=== PATIENT | female | born 1980 | race Caucasian/White ===

== ENCOUNTER → 2020-10-07 13:26 | Outpatient (CLI) | payer OTHER, SELFPAY ==
--- NOTE | ~2020-10-07 | US_ITS ---
EXAMINATION: US pelvic complete DATE: 10/07/2020 13:46 INDICATION: Amenorrhea Comparison:No prior studies for comparison. TECHNIQUE: Multiple transabdominal and endovaginal sonographic images of the pelvis performed. FINDINGS: The uterus measures 7.1 x 3.2 x 5.6 cm. There are echogenic foci in the lower uterine segme nt, likely calcifications. The endometrial complex measures 4 mm. The right ovary measures 2.9 x 2.9 x 1.9 cm and the left ovary measures 4 x 2 x 2.5 cm. There are sm all follicles in each ovary. Normal doppler signal in both ovaries. There is no free fluid in the pelvis. There are no abnormal masses seen on either side. IMPRESSION: 1. Echogenic foci in the lower uterine segment, likely calcifications. Otherwise, unremarkable pelvic ultrasound. Reviewed, dictated and finalized at location B. IMPRESSION: 1. Echogenic foci in the lower uterine segment, likely calcifications. Otherwis e, unremarkable pelvic ultrasound.
== END ==
PROVIDERS: Visit Provider Nurse Practitioner
DX: N91.2 Amenorrhea, unspecified (principal)
CPT/HCPCS: 76856

== ENCOUNTER → 2020-12-24 09:16 | Outpatient (CLI) | payer OTHER, SELFPAY ==
--- NOTE | ~2020-12-24 | US_ITS ---
EXAMINATION: US abdomen complete EXAM DATE: 12/24/2020 09:44 INDICATION: R74.01 - Elevation of levels of liver transaminase levels. TECHNIQUE: Multiple grayscale and Doppler images of the complete abdomen were obtained (by a technolo gist who performed the scan) and subsequently reviewed. There is no prior study for comparison. FINDINGS: The abdominal aorta is normal in caliber. Visualized portion IVC is patent. The pancreatic head a nd body are normal in appearance. The pancreatic tail is not visualized. There is echogenic liver parenchyma, hepatic steatosis. There are no focal liver lesions identified. There is no evidence of intrahepatic biliary duct dilation. Portal venous flow was seen in the he patopedal, normal direction and has normal Doppler waveform. Common bile duct measures 3-4 mm, which is normal. The gallbladder wall is normal in thickness, with expected amount of distention. No sonographic evidence of pericholecystic fluid. There is no cholel ithiases. Technologist performing exam reports patient did not demonstrate sonographic Fabian's sign. Please note that this sign is less reliable in patients who have received pain medication. Right kidney: There is normal contour and echogenicity. It measures 10.5 x 4.2 x 4.9 centimeters. There are no focal renal lesions identified. There is no hydronephrosis. Left kidney: There is normal contour and echogenicity. It measures 11.5 x 5.3 x 4.6 centimeters. T here are no focal renal lesions identified. There is no hydronephrosis. The spleen measures 11 centimeters and is morphologically normal. IMPRESSION: 1. Hepatic steatosis. Reviewed, dictated and finalized at location A. IMPRESSION: 1. Hepatic steatosis.
== END ==
PROVIDERS: Visit Provider Physician Assistant Medical
DX: R74.01 Elevation of levels of liver transaminase levels (principal); K76.0 Fatty (change of) liver, not elsewhere classified
CPT/HCPCS: 76700

== ENCOUNTER 2021-05-25 11:29 | Outpatient (CLI) | payer OTHER, SELFPAY ==
--- NOTE | 2021-06-12 15:16 | WPDHOMESLEEP ---
Sleep Study - Home Unattended Date of Study: 05/25/21 <Ayleen Blancas DO - Last Filed: 06/12/21 15:28> Ordering Provider: Azeem Simon MD <Ayleen Blancas DO - Last Filed: 06/12/21 15:28> Interpreting Provider: Ayleen Blancas DO <Ayleen Blancas DO - Last Filed: 06/12/21 15:28> Home Sleep Study Type: Watch PAT <Ayleen Blancas DO - Last Filed: 06/12/21 15:28> Height: 1.6 m <Ayleen Blancas DO - Last Filed: 06/12/21 15:28> Weight: 124.738 kg <Ayleen Blancas DO - Last Filed: 06/12/21 15:28> Body Mass Index: 48.6 <Ayleen Blancas DO - Last Filed: 06/12/21 15:28> Neck Circumference (inches): 16.5 <Ayleen Blancas DO - Last Filed: 06/12/21 15:28> [place]: 12 <Ayleen Blancas DO - Last Filed: 06/12/21 15:28> Reason for Sleep Study Unrefreshing sleep, daytime hypersomnia, morning headaches <Ayleen Blancas DO - Last Filed: 06/12/21 15:28> Sleep History The patient is a 40-year-old female with hypertension, tachycardia, anxiety and depression that had a home sleep test ordered by her primary care for unrefreshing sleep and daytime hypersomnia. The patient states that she occasionally awakens from sleep short of breath. She occasionally awakens at night with heartburn, belching or cough. She constantly snores and is frequently loud enough that others complain. She frequently has trouble sleeping when she has a cold. She frequently suddenly wakes up gasping for air throughout the night. She frequently has breathing problems at night observed by others. She occasionally sweats excessively at night. She occasionally notices heart palpitations or irregular heartbeats during the night. He occasionally falls asleep during the day but never while driving. She denies sleep paralysis, cataplexy and hypnagogic / hypnopompic hallucinations. She rarely has trouble at its work due to sleepiness. She rarely has nightmares. She frequently has thoughts racing through her mind. She frequently feels sad or depressed. She frequently feels anxious. She frequently notices parts of her body jerk. She denies kicking throughout the night. She frequently experiences crawling and aching feelings in her legs but rarely has leg pain during the night. She denies grinding her teeth during sleep but off occasionally awakens with jaw pain in the morning. He is frequently bothered by pain during the day but never awakened by pain during the night. She frequently wakes up feeling stiff in the morning with sore and achy muscles. She goes to bed at 9:00 p.m. on weekdays and 10:00 p.m. on weekends. He takes her 30 minutes to fall asleep. She typically wakes up 4-5 times throughout the night. When she awakens, she will either lying in bed, use the restroom with look at her phone. She will typically fall asleep within 30 minutes. She wakes up at 5:30 a.m. on weekdays and 6:00 a.m. on the weekends. She typically gets 6-7 hours of sleep per night. She will stay in bed for 15-30 minutes after waking up in the morning. She currently lives with her and 5-year-old son. She does not consume any caffeinated beverages within 2 hours of bedtime. She does not engage in physical exercise before bedtime. She will read and watch television before falling asleep. She will take naps in the afternoon but they are not refreshing. She does not consume any caffeinated beverages during the day.She denies tobacco, alcohol and recreational drug use. <Ayleen Blancas DO - Last Filed: 06/12/21 15:28> [facility] Past Medical History Medical History: Medical History BMI 45.0-49.9, adult Morbid obesity <Ayleen Blancas DO - Last Filed: 06/12/21 15:28> Family History Family History: Family History Grandparent Hypertension D
[2021-06-12 15:28] VITALS: BMI 48.6
== END 2021-05-26 13:32 | disposition home or self-care (01) ==
LOC: ANHCSM 11:29
PROVIDERS: PCP Family Medicine; Visit Provider Family Medicine
DX: G47.00 Insomnia, unspecified (principal); G47.33 Obstructive sleep apnea (adult) (pediatric)
CPT/HCPCS: 95800

== ENCOUNTER 2024-06-24 18:06 | Emergency (ER) | payer OTHER, SELFPAY ==
--- NOTE | 2024-06-24 18:10 | ED_ITS ---
HPI - URI/Sore Throat General Chief Complaint: Upper Respiratory Infection Stated Complaint: fever,congestion Time Seen by Provider: 06/24/24 18:35 Source: patient and RN notes reviewed Mode of arrival: ambulatory Limitations: no limitations History of Present Illness HPI Narrative: 43-year-old female presents concern for 5 day history of chest congestion, fever, cough. She reports she has a fever every morning and at that time she will have sweats, body aches, chills. Reports she has been taking Tylenol in a multi symptom cold medicine which slightly improved her symptoms. She reports chest congestion has been getting worse MD elicited complaint: cough Related Data Home Medications ?Medication ?Instructions ?Recorded ?Confirmed ?Last Taken ?Type norgestimate 0.25 mg-ethinyl 1 tablet PO DAILY 03/22/21 06/24/24 Unknown History estradiol 35 mcg tablet (Arlene) Allergies Allergy/AdvReac Type Severity Reaction Status Date / Time No Known Allergies Allergy Verified 06/24/24 18:14 Review of Systems Review of Systems: CONSTITUTIONAL: Reports malaise, chills, sweats, fever. EYES: Denies visual changes, redness, or discharge. ENT: Reports rhinorrhea, congestion. Denies sinus pain, otalgia and sore throat. CARDIOVASCULAR: Denies chest pain, palpitations, or edema. RESPIRATORY: Reports cough, chest congestion. Denies dyspnea. GASTROINTESTINAL: Denies abdominal pain, nausea, vomiting, diarrhea SKIN: Denies rash or itching. MUSCULOSKELETAL: Reports myalgia. NEUROLOGIC: Denies headache. All systems reviewed & are unremarkable except as noted in HPI and below PMFSH Past Medical History Medical History (Updated 06/24/24 @ 18:43 by Yasmeen Cabral NP) Tachycardia BMI 45.0-49.9, adult Insomnia Essential hypertension Morbid obesity URI with cough and congestion Fatigue Need for lipid screening Family History Family History Grandparent Hypertension Mother Hypertension Father Social History Social History Smoking status: Never smoker Alcohol intake: former Substance use: never Substance use type: does not use Living arrangements: with family Additional living arrangements comments: and son Occupation/Education: occupation Additional occupation/education comments: school admin Gender identity (if verbalized by the patient): Female Sexual Orientation (if Verbalized by the Patient): Straight or Heterosexual Spiritual care concerns: No Agree to blood products: Yes Comments At time of signature, agree with nursing past medical, surgical, social and fa vane history. There is no relevant family history pertinent to the presenting complaint Exam Narrative: GENERAL: Well-appearing, well-nourished, and in no acute distress. HEAD: Normocephalic EYES: PERRLA, conjunctivae clear ENT: Nares clear. Mucous membranes moist. TM pearly thompson with dull light reflex bilaterally; no tragal tenderness. Oropharynx not erythematous without lesions. Tonsils not enlarged and without exudate, no drooling, no hoarseness, no trismus, uvula midline. NECK: Supple. No lymphadenopathy CHEST: Scattered wheeze and rhonchi, otherwise Clear to auscultation, breath sounds equal. No rales, or stridor. No respiratory distress, speaks in full sentences. HEART: Regular rate and rhythm. No murmur heard. SKIN: Warm, dry, no rash. NEURO: Alert and oriented x3. PSYCH: Normal mood and affect Course Course Emergency Course: Patient is aware of diagnosis, understands and agrees to treatment plan. Anticipatory guidance given. Patient agrees to follow-up as directed and is aw are of reasons to seek care at the emergency department. Portions of this record may have been created with voice recognition software Level of Care: Express Care Visit Vital Signs Vital signs: Vital Signs Temperature 97.9 F 06/24/24 18:24 Pulse Rate 110 H 06/24/24 18:24 Respiratory Rate 20 06/24/24 18:24 Blood Pressure 170/117 H 06/24/24 18:24 Pulse Oximetry 98 06/24/24 18:24 Oxygen Delivery Room Air 06/24/24 18:24 Temperature 97.9 F 06/24/24 18:24 Pulse Rate 110 H 06/24/24 18:24 Respiratory Rate 20 06/24/24 18:24 Blood Pressure 170/117 H 06/24/24 18:24 Pulse Oximetry 98 06/24/24 18:24 Oxygen Delivery Room Air 06/24/24 18:24 Reviewed. MDM - URI/Sore Throat MDM Narrative Medical decision making narrative: Differential diagnosis considered: Barros virus, strep pharyngitis, allergic rhinitis, upper respiratory tract infection, sinusitis, rhinosinusitis, nasopharyngitis. viral pharyngitis, otitis media, otitis externa, pneumonia, bronchitis, viral cough syndrome, viral syndrome, and influenza. Exam findings show no acute concerns or changes; patient is non-toxic appearing and is in no distress. Patient is appropriate for outpatient treatment and follow-up. Lab Data Attestation: I reviewed the patient's lab results. Critical Care Time Critical Care Time Critical Care Time: No Discharge Plan Discharge Clinical Impression: Upper respiratory infection with cough and congestion Patient Disposition: Home, Self-Care Condition: Stable Instructions: Antibiotic Form, Acute Cough (ED) Additional Instructions: Viral illness may last between 7-21 days; antibiotics do not cure viral illness and are NOT recommended at this time. Recommend antihistamine such as Benadryl at night time and Zyrtec or Kasia during the day Use inhaler as needed for cough, wheezing, shortness of breath or chest tightness. Also, recommend symptomatic treatment includes: rest, fluids, and increase humidity of the air at home. Recommend Acetaminophen as directed on the bottle to reduce fever, pain, headache. Avoid smoking/second-hand smoke. Please schedule a follow-up visit with your personal physician for further evaluation and treatment within 3-5days. Including recheck and discussion of your blood pressure. If your symptoms persist, change or worsen significantly before you can contact your personal physician then please, without delay, go to the emergency department for further evaluation. Patient Language: Jamaican Prescriptions: New azithromycin [Zithromax Z-Edis] 250 mg tablet See Rx Instructions .ROUTE .COMPLEX Qty: 6 0RF Rx Instructions: take 500 mg today (day 1), then 250 mg for 4 days (days 2-5) methylprednisolone [Medrol (Edis)] 4 mg tablets,dose pack See Rx Instructions .ROUTE .COMPLEX Qty: 21 0RF Rx Instructions: orally per package directions albuterol sulfate 90 mcg/actuation HFA aerosol inhaler 2 puff INHALATION QID PRN (Reason: shortness of breath or wheezing) Qty: 8.5 0RF No Action norgestimate-ethinyl estradiol [Arlene] 0.25-35 mg-mcg tablet 1 tablet PO DAILY lisinopril 10 mg tablet 10 mg PO DAILY Qty: 90 3RF metoprolol succinate 50 mg tablet extended release 24 hr 50 mg PO DAILY Qty: 90 3RF sertraline [Zoloft] 50 mg tablet 50 mg PO DAILY Qty: 90 3RF cholecalciferol (vitamin D3) 1,250 mcg (50,000 unit) capsule 1,250 mcg PO WEEKLY Qty: 8 0RF Follow-up/Referrals: Azeem Simon MD [Primary Care Provider] - Stand Alone Forms: Work/School Release IP Time of Disposition: 18:44
[2024-06-24 18:24] VITALS: BP 170/117; PULSE 110; RESP 20; TEMP 36.6; O2SAT 98
== END 2024-06-24 18:55 | disposition home or self-care (01) ==
PROVIDERS: Emergency Provider Nurse Practitioner; PCP Family Medicine
DX: J06.9 Acute upper respiratory infection, unspecified (principal); R05.9 Cough, unspecified; I10 Essential (primary) hypertension; E66.01 Morbid (severe) obesity due to excess calories; Z68.43 Body mass index [BMI] 50.0-59.9, adult
CPT/HCPCS: 99213; G0463